=== PATIENT | female | born 1980 | race Caucasian/White ===

== ENCOUNTER → 2017-06-07 | Outpatient (CLI) | payer BC ==
[~2017-06-07] MED LIST: CIPRO 500MG TA500 MG PO; FLAGYL500 MG PO; IBU600 MG PO; MOTRIN 600600 MG/TAB PO; PERCOCET 325 MG1 TA2 PO; PRENATAL1 TA1 PO; SENOKOT S 50 MG1 TAB PO; SUDAFED30 MG PO
== END ==
LOC: COL.RAD 11:01
DX: E05.20 Thyrotoxicosis with toxic multinodular goiter without thyrotoxic crisis or storm (principal)

== ENCOUNTER → 2017-06-21 | Outpatient (CLI) | payer BC | LOC: COL.RAD 10:10 | DX: R94.6 Abnormal results of thyroid function studies (principal) | CPT/HCPCS: A9516 ==

== ENCOUNTER → 2019-10-02 | Outpatient (CLI) | payer BC | LOC: MC.RAD 14:21 | DX: Z12.31 Encounter for screening mammogram for malignant neoplasm of breast (principal); N64.89 Other specified disorders of breast ==

== ENCOUNTER → 2019-10-05 | Outpatient (CLI) | payer BC | LOC: MC.RAD 08:09 | DX: N64.89 Other specified disorders of breast (principal) | CPT/HCPCS: G0279 ==

== ENCOUNTER → 2020-02-14 | Outpatient (CLI) | payer BC | LOC: COL.RAD 13:51 | DX: R10.9 Unspecified abdominal pain (principal); R11.0 Nausea; R63.4 Abnormal weight loss; R12 Heartburn; R53.83 Other fatigue; Z87.19 Personal history of other diseases of the digestive system | CPT/HCPCS: Q9967 ==

== ENCOUNTER → 2021-07-03 | Outpatient (CLI) | payer BC | LOC: MC.RAD 13:16 | DX: Z12.31 Encounter for screening mammogram for malignant neoplasm of breast (principal) ==

== ENCOUNTER → 2023-02-22 | Outpatient (CLI) | payer BC | LOC: CANSCHCLI → MC.RAD 15:24 | DX: Z12.31 Encounter for screening mammogram for malignant neoplasm of breast (principal) ==